=== PATIENT | female | born 1995 | race Caucasian/White ===

== ENCOUNTER 2016-11-16 15:01 | Emergency (ER) | payer OTHER ==
[2016-11-16 15:07] VITALS: BP 113/50; PULSE 79; TEMP 99; BMI 22.6
[2016-11-16] MEDS ORDERED: RABIES IMMUNE GLOBULIN 300 UNITS/2 ML VIAL IM ONE (15:36)
[2016-11-16] MEDS ORDERED: RABIES VACCINE (PCEC)/PF 2.5 UNIT/VIAL IM ONE (15:36)
[2016-11-16] MEDS ORDERED: DIPHTH,PERTUSS(ACELL),TET 0.5 ML DISP.SYRIN IM ONE (15:37)
--- NOTE | 2016-11-16 16:21 | PDOC ---
History of Present Illness - General Chief Complaint: Bite Stated Complaint: BITTEN BY CAT Time Seen by Provider: 11/16/16 15:29 History Source: Patient Exam Limitations: No Limitations - History of Present Illness Initial Comments: 11/16/16 15:54 CHIEF COMPLAINT: Bite to right posterior leg from stray cat HISTORY OF PRESENT ILLNESS: Patient is a 21-year-old female, no significant medical history currently on no medication reports that she came with her dog, was attacked from behind by a stray cat to right posterior leg unable to find the cat noticeable scratches and questionable bite to right posterior leg. Last tetanus is unknown. Timing/Duration: reports: this afternoon Severity: Yes: moderate Location: reports: extremities (right posterior leg) Respiratory Risk Factors: reports: no cause identified Associated Symptoms: reports: denies symptoms Past History - Past Medical History Allergies/Adverse Reactions: Allergies Allergy/AdvReac Type Severity Reaction Status Date / Time No Known Allergies Allergy Verified 11/16/16 15:07 Home Medications: Ambulatory Orders Amox-Tr/K Cl [Augmentin - 875Mg Tablet] 1 tab PO BID #14 tablet 11/16/16 Other medical history: NONE - Psycho/Social/Smoking Cessation Hx Suicidal Ideation: No Smoking History: Never smoked Hx Alcohol Use: Yes (SOCIAL) Drug/Substance Use Hx: No Review of Systems - Review of Systems Constitutional: No: Symptoms Reported HEENTM: No: Symptoms Reported Respiratory: No: Symptoms reported Cardiac (ROS): No: Symptoms Reported ABD/GI: No: Symptoms Reported : No: Symptoms Reported Musculoskeletal: No: Symptoms Reported Integumentary: Yes: Other (abrasion and scratches to the right posterior leg. No surrounding redness, swelling or signs of infection. ) Neurological: No: Symptoms reported, Paresthesia, Tingling, Tremors Hematologic/Lymphatic: No: Symptoms Reported All Other Systems: Reviewed and Negative *Physical Exam - Vital Signs Last Vital Signs Temp Pulse Resp BP Pulse Ox 99.0 F 79 18 113/50 99 11/16/16 15:02 11/16/16 15:02 11/16/16 15:02 11/16/16 15:02 11/16/16 15:02 - Physical Exam General Appearance: Yes: Appropriately Dressed. No: Apparent Distress Neck: negative: Tender lateral, Tender midline Respiratory/Chest: positive: Lungs Clear, Normal Breath Sounds Lymphatic: negative: Adenopathy Musculoskeletal: positive: Normal Inspection Extremity: positive: Normal Capillary Refill. negative: Normal Range of Motion , Swelling, Erythema, Inflammation Integumentary: positive: Other (Abrasion and ? superficial puncture to right posterior leg. ). negative: Erythema, Swelling, Ecchymosis, Bruising Neurologic: positive: Alert, Normal Mood/Affect, Normal Response, Motor Strength 5/ ED Treatment Course - Medications Given in the ED: ED Medications Discontinued Medications Generic Name Dose Route Start Last Admin Trade Name Freq PRN Reason Stop Dose Admin Diphtheria/Tetanus/Acell Pertussis 0.5 ml 11/16/16 15:37 11/16/16 15:50 Boostrix - IM 11/16/16 15:38 0.5 ml .ONCE ONE Administration Rabies Vaccine 2.5 unit 11/16/16 15:36 11/16/16 15:51 Rabavert Rabies Vaccine IM 11/16/16 15:37 2.5 unit .ONCE ONE Administration Medical Decision Making - Medical Decision Making 11/16/16 16:53 A/P: Patient was scratched and bitten by a feral cat, vaccination and Imovax started. Infiltrated around wound. Schedule given to patient to return. Tetanus given. 11/16/16 22:53 *DC/Admit/Observation/Transfer Diagnosis at time of Disposition: Cat bite Qualifiers: Encounter type: initial encounter Qualified Code(s): W55.01XA - Bitten by cat, initial encounter - Discharge Dispostion Disposition: HOME Condition at time of disposition: Good Admit: No - Prescriptions Prescriptions: Amox-Tr/K Cl [Augmentin - 875Mg Tablet] 1 tab PO BID #14 tablet - Referrals Referrals: Luis Langley MD [Primary Care Provider] - - Patient Instructions Printed Discharge Instructions: DI for Animal Bites Additional Instructions: Please keep area clean and dry Please return on proper schedule. Antibiotics as ordered until completed if any increased redness swelling or signs of infection please return to ER - Post Discharge Activity Work/School Note: Back to Work, Rabies Vaccination F/U Tabitha.
== END 2016-11-16 17:02 | disposition home or self-care (01) ==
LOC: JERFT 15:01
PROC: 3E0234Z Introduction of Serum, Toxoid and Vaccine into Muscle, Percutaneous Approach (ICD-10-PCS; principal; 2016-11-16)
DX: S81.851A Open bite, right lower leg, initial encounter (principal); W55.01XA Bitten by cat, initial encounter; Y93.89 Activity, other specified; Y92.9 Unspecified place or not applicable; Z20.3 Contact with and (suspected) exposure to rabies
CPT/HCPCS: 90375; 90675; 90715; 99281-25

== ENCOUNTER 2016-11-20 00:09 | Emergency (ER) | payer OTHER ==
[2016-11-20] MEDS ORDERED: RABIES VACCINE (PCEC)/PF 2.5 UNIT/VIAL IM ONE (00:17)
[2016-11-20 00:18] VITALS: BP 115/62; PULSE 82; TEMP 97.9; BMI 22.6
--- NOTE | 2016-11-20 00:34 | PDOC ---
History of Present Illness - General Chief Complaint: Revisit,Rabies Injection Stated Complaint: REVISIT-RABIES VACCINE Time Seen by Provider: 11/20/16 00:17 History Source: Patient Exam Limitations: No Limitations - History of Present Illness Initial Comments: 11/20/16 00:30 The 21-year-old female presents to the emergency department for a rabies vaccination. Patient states she was bit by a stray cat 3 days ago. He denies fever, chills, ext numbness or tingling sensation. Patient says she feels fine and has no complaints. Past History - Past Medical History Allergies/Adverse Reactions: Allergies Allergy/AdvReac Type Severity Reaction Status Date / Time No Known Allergies Allergy Verified 11/20/16 00:14 Home Medications: Ambulatory Orders NK [No Known Home Medication] 11/20/16 Other medical history: denies - Psycho/Social/Smoking Cessation Hx Suicidal Ideation: No Smoking History: Never smoked Hx Alcohol Use: Yes (SOCIAL) Drug/Substance Use Hx: No Review of Systems - Review of Systems Able to Perform ROS?: Yes Comments:: 11/20/16 00:31 CONSTITUTIONAL: Absent: fever, chills, diaphoresis, generalized weakness, malaise, loss of appetite SKIN: healing abrasion to distal lat right lower leg Absent: rash, itching, pallor HEMATOLOGIC/IMMUNOLOGIC: Absent: easy bleeding, easy bruising, lymphadenopathy, frequent infections ENDOCRINE: Absent: unexplained weight gain, unexplained weight loss, heat intolerance, cold intolerance Is the patient limited Norwegian proficient: No *Physical Exam - Vital Signs Last Vital Signs Temp Pulse Resp BP Pulse Ox 97.9 F 82 18 115/62 99 11/20/16 00:10 11/20/16 00:10 11/20/16 00:10 11/20/16 00:10 11/20/16 00:10 - Physical Exam Comments: 11/20/16 00:32 GENERAL: Well developed, well nourished. Awake and alert. No acute distress. MUSCULOSKELETAL Normal range of motion at all joints. No bony deformities or tenderness. No CVA tenderness. EXTREMITIES: No cyanosis. No clubbing. No edema. No calf tenderness. SKIN: Warm and dry. Normal capillary refill. No rashes. No jaundice. Right lat lower right leg; superficial abrasions [id number] *DC/Admit/Observation/Transfer Diagnosis at time of Disposition: Need for rabies vaccination - Discharge Dispostion Disposition: HOME Condition at time of disposition: Stable Admit: No - Referrals Referrals: Luis Langley MD [Primary Care Provider] - - Patient Instructions Printed Discharge Instructions: DI for Rabies Vaccine Additional Instructions: Your next Rabies (3rd) vaccination is on November 23. Your last rabies vaccination is on Nov 30. Return to the Er as needed
== END 2016-11-20 01:00 | disposition home or self-care (01) ==
LOC: JER 00:09
PROC: 3E0234Z Introduction of Serum, Toxoid and Vaccine into Muscle, Percutaneous Approach (ICD-10-PCS; principal; 2016-11-20)
DX: Z20.3 Contact with and (suspected) exposure to rabies (principal)
CPT/HCPCS: 90675; 99281-25

== ENCOUNTER 2019-07-11 00:20 | Emergency (ER) | payer OTHER ==
[2019-07-11] MEDS ORDERED: SODIUM CHLORIDE 1,000 ML IV STA ×2 (00:30→01:42)
[2019-07-11] MEDS ORDERED: ACETAMINOPHEN 1000 MG/100 ML VIAL (NON FORMULARY) IVPB ONE (00:30)
[2019-07-11] MEDS ORDERED: ACETAMINOPHEN INJECTION 100 ML IVPB ONE (00:45)
--- NOTE | 2019-07-11 00:45 | PDOC ---
History of Present Illness - General Chief Complaint: Pain Stated Complaint: ABDOMINAL PAIN Time Seen by Provider: 07/11/19 00:29 History Source: Patient Exam Limitations: No Limitations - History of Present Illness Initial Comments: 07/11/19 01:02 23y F with PMH of ovarian cysts s/p ?cystectomy 4y ago presenting to ED via EMS for abdominal pain. Pt is hyperventilating and states that she has had the pain on and off for the past week or so but got worse today and she started to feel numbness in her hands and fingers and stiffening up. She states the abdominal pain is in the LUQ feels sharp radiating to her chest. She denies n/v/d, back pain, urinary symptoms, fevers, chills, headache. PMD: PMH: none PSH: see hpi Meds: none Allergies: nkda 07/11/19 01:44 Past History - Past Medical History Allergies/Adverse Reactions: Allergies Allergy/AdvReac Type Severity Reaction Status Date / Time No Known Allergies Allergy Verified 07/11/19 01:42 Home Medications: Ambulatory Orders NK [No Known Home Medication] 11/20/16 - Psycho Social/Smoking Cessation Hx Smoking History: Never smoked Hx Alcohol Use: Yes (SOCIAL) Drug/Substance Use Hx: No Review of Systems - Review of Systems Constitutional: No: Chills, Fever HEENTM: No: Symptoms Reported Respiratory: Yes: Shortness of Breath. No: Cough Cardiac (ROS): Yes: Chest Pain ABD/GI: Yes: See HPI : No: Symptoms Reported Musculoskeletal: Yes: See HPI Integumentary: No: Symptoms Reported Neurological: Yes: See HPI *Physical Exam - Physical Exam General Appearance: Yes: Nourished, Appropriately Dressed, Severe Distress HEENT: positive: EOMI, STEPHANIE Neck: positive: Trachea midline, Supple Respiratory/Chest: positive: Lungs Clear, Normal Breath Sounds, Rapid RR (hyperventilation). negative: Chest Tender, Accessory Muscle Use, Crackles, Rhonchi, Stridor, Wheezing Cardiovascular: positive: Regular Rhythm, S1, S2, Tachycardia. negative: Edema, JVD, Murmur Vascular Pulses: Dorsalis-Pedis (R): 2+, Doralis-Pedis (L): 2+ Gastrointestinal/Abdominal: positive: Normal Bowel Sounds, Soft. negative: Tender, Guarding, Rebound, Tenderness Musculoskeletal: positive: Other (upper extremities flexed and resisting exten kirsten. told pt to relax). 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 pt is hyperventilating. no tenderness. ddx includes pe/gerd/gastritis, appendicitis, cholelithaisis, cholecystitis, , sbo + panic attack. will obtain labs, bhcg, lipase, trop ns, ofirmev, pepcid, maalox. given nrb without tubing for hyperventilation (likely cause of numbness/paresthesias). will reassess. 07/11/19 01:06 pt feeling better. no leukocytosis. hypkalemia (will replete) trop negative. all other electrolytes wnl. preg negative. pt states that she travelled to [place] and returned 2d ago. She was seen at urgent care for this chest pain she was having. will order d-dimer, cxr, ekg lact 3, likely 2/2/ hyerperentilalation. will hydrate more and rpt. 07/11/19 01:51 ekg: nsr at 70bpm. normal intervals. no S1Q3T3. low voltage qrs. no signs of acute sichemia. good R wave progression. CXR per my read: no infiltrates or consolidations, no trachea deviation, no ptx. 07/11/19 02:29 pt feeling better. eating chips. negative trop, ddimer 200s. pt is not tachypneic, symptoms improved. will rpt lactic acid and pending UA 07/11/19 03:06 UA negative for infection. 07/11/19 03:07 07/11/19 03:30 pt is better, vitals stable. not tachycardic, not dyspneic. normotensive. will dc home. Discharge - Discharge Information Problems reviewed: Yes Clinical Impression/Diagnosis: Hyperventilation Abdominal pain Qualifiers: Abdominal location: left upper quadrant Qualified Code(s): R10.12 - Left upper quadrant pain Chest pain Qualifiers: Chest pain type: unspecified Qualified Code(s): R07.9 - Chest pain, unspecified Condition: Improved Disposition: HOME - Admission No - Follow up/Referral Referrals: Helen Landis [Primary Care Provider] - - Patient Discharge Instructions Patient Printed Discharge Instructions: DI for Abdominal Pain-Adult, DI for Atypical Chest Pain, DI for Hyperventilation Additional Instructions: You were seen in the ER for chest pain, abdominal pain and tingling in the hands. The pain in your hands was due to hyperventilation. If you ever feel this way, breathe into a bag. Your blood work was normal. I do not know the exact cause of your pain but it could be due to a panic attack. I recommend following up with your doctor. Come back to the ER if you have worsening chest pain, are unable to breathe or if any new or concerning symptom develops. Thank you - Post Discharge Activity
[2019-07-11] MEDS ORDERED: MAG HYDROX/AL HYDROX/SIMETH -MYLANTA- ORAL SUSPENSION PO ONE (00:46)
[2019-07-11] MEDS ORDERED: FAMOTIDINE 20 MG/50 ML IVPB 20 MG/50 ML MG IVPB ONE ×2 (00:46→00:54)
[2019-07-11] MEDS ORDERED: MAG HYDROX/AL HYDROX/SIMETH 30 ML UNIT-DOSE CUP ONE (00:54)
--- NOTE | 2019-07-11 01:00 | PDOC ---
Documentation entered by Alycia Ware SCRIBE, acting as scribe for Chica Romero DO. Chica Romero DO: This documentation has been prepared by the Jeanie hernandez Brenda, SCRIBE, under my direction and personally reviewed by me in its entirety. I confirm that the documentation accurately reflects all work, treatment, procedures, and medical decision making performed by me. Attending Attestation - Resident Resident Name: MillieKecia - ED Attending Attestation I have performed the following: I have examined & evaluated the patient, The case was reviewed & discussed with the resident, I agree w/resident's findings & plan, Exceptions are as noted - HPI HPI: 07/11/19 00:46 The patient is a 23 year old female with no significant PMH who presents to the ED BIBA for evaluation of 2 weeks of intermittent sharp abdominal pain radiating to her chest. Patient reports that the pain became progressively worse tonight, prompting her to call the ambulance. Patient also endorses nausea starting earlier today. The patient denies shortness of breath, headache and dizziness. Denies fever, chills, vomiting, diarrhea and constipation. Denies dysuria, frequency, urgency and hematuria. Allergies: NKA Social Hx: Social alcohol use - Physicial Exam PE: 07/11/19 00:47 GENERAL: Panicking. Hyperventilating. Awake, alert, and fully oriented, in no acute distress HEAD: No signs of trauma EYES: PERRLA, EOMI, sclera anicteric, conjunctiva clear ENT: Auricles normal inspection, hearing grossly normal, nares patent, oropharynx clear without exudates. Moist mucosa NECK: Normal ROM, supple, no lymphadenopathy, JVD, or masses LUNGS: (+) Tachypneic. Breath sounds equal, clear to auscultation bilaterally. No wheezes, and no crackles HEART: (+) tachycardic. Regular rhythm, normal S1 and S2, no murmurs, rubs or gallops ABDOMEN: (+) mild epigastric tenderness. Soft, nontender, normoactive bowel sounds. No guarding, no rebound. No masses No CVA tenderness. EXTREMITIES: Normal range of motion, no edema. No clubbing or cyanosis. No cords, erythema, or tenderness NEUROLOGICAL: Cranial nerves II through XII grossly intact. Normal speech, normal gait SKIN: Warm, Dry, normal turgor, no rashes or lesions noted. - Medical Decision Making 07/11/19 00:57 I, Dr. Chica Romero, DO, attest that this document has been prepared under my direction and personally reviewed by me in its entirety. I further attest, that it accurately reflects all work, treatment, procedures and medical decision-making performed by me. a/p: 23yo female with abd pain that radiates through her chest -pain has been on and off for 2 weeks, but worse tonight -no assoc diarrhea, no vomiting -states pain is sharp -pt c/o nausea earlier today -will send labs -will medicate -pt hyperventilating- suspect cause of tingling to arms and legs- placed on a nrb -will monitor and reassess 07/11/19 01:33 pt feeling better, but still with an ache in the upper abd, sob no longer tachypnic recently returned from [place]- no cough, no fevers will add dimer 07/11/19 01:44 lactate 3 from resp muscle use no longer tachypnic will repeat dimer pending trop neg cxr penidng Heart Score/ECG Review - ECG Intrepretation Comment:: 07/11/19 01:50 sinus at 70, nl axis, nl interval, low voltage, no acute st/t wave findings
[2019-07-11 01:01] LABS: BASO % 0.5 % (0-2.0); EOS % 2.2 % (0-4.5); HEMATOCRIT 41.1 % (32.4-45.2); HEMOGLOBIN 14.2 GM/dL (10.7-15.3); LYMPH % 31.8 % (8-40); MCH 29.4 pg (25.7-33.7); MCHC 34.5 g/dl (32.0-36.0); MEAN CELL VOLUME 85.2 fl (80-96); NEUT % 59.5 % (42.8-82.8); PLATELET COUNT 168 K/MM3 (134-434); RBC 4.82 M/mm3 (3.60-5.2); RDW 13.6 % (11.6-15.6); WHITE BLOOD COUNT 6.3 K/mm3 (4.0-10.0)
[2019-07-11 01:31] LABS: ALBUMIN 3.8 g/dl (3.4-5.0); ALK PHOS 58 U/L (45-117); ANION GAP 12 MMOL/L (8-16); BILIRUBIN,TOTAL 0.3 mg/dL (0.2-1); BLOOD UREA NITROGEN 9.6 mg/dL (7-18); CHLORIDE 106 mmol/L (98-107); CO2 21 mmol/L (21-32); CREATININE 0.8 mg/dL (0.55-1.3); GLUCOSE,RANDOM 83 mg/dL (74-106); LIPASE 89 U/L (73-393); POTASSIUM 3.2 mmol/L (3.5-5.1); SGOT/AST 23 U/L (15-37); SGPT/ALT 19 U/L (13-61); SODIUM 139 mmol/L (136-145)
[2019-07-11] MEDS ORDERED: ONDANSETRON 4 MG/2 ML VIAL IVPB ONE (01:34)
[2019-07-11] MEDS ORDERED: POTASSIUM CHLORIDE ORAL LIQUID 20 MEQ/15 ML PO ONE (01:34)
[2019-07-11 02:22] VITALS: TEMP 98; BMI 26.4
[2019-07-11 02:51] LABS: PH,URINE 6.5 (5.0-8.0); URINE APPEARANCE CLEAR; URINE BILIRUBIN NEGATIVE (NEGATIVE); URINE COLOR YELLOW; URINE GLUCOSE (UA) NEGATIVE (NEGATIVE); URINE KETONE NEGATIVE (NEGATIVE); URINE LEUK ESTERASE NEGATIVE (NEGATIVE); URINE NITRITE NEGATIVE (NEGATIVE); URINE PROTEIN NEGATIVE (NEGATIVE)
[2019-07-11 03:11] VITALS: BP 111/67; PULSE 72
--- NOTE | 2019-07-11 15:06 | EKG ---
Test Reason : Blood Pressure : / mmHG Vent. Rate : 070 BPM Atrial Rate : 070 BPM P-R Int : 158 ms QRS Dur : 096 ms QT Int : 420 ms P-R-T Axes : 074 029 044 degrees QTc Int : 453 ms NORMAL SINUS RHYTHM LOW VOLTAGE QRS BORDERLINE ECG NO PREVIOUS ECGS AVAILABLE Confirmed by YING CORREA MD ([id number]) on 07/11/2019 3:05:57 PM Referred By: Confirmed By:YING CORREA MD
== END 2019-07-11 03:26 | disposition home or self-care (01) ==
LOC: JER 00:20
PROC: 3E033GC Introduction of Other Therapeutic Substance into Peripheral Vein, Percutaneous Approach (ICD-10-PCS; principal; 2019-07-11)
PROC: 3E033NZ Introduction of Analgesics, Hypnotics, Sedatives into Peripheral Vein, Percutaneous Approach (ICD-10-PCS; 2019-07-11)
PROC: 3E033GC Introduction of Other Therapeutic Substance into Peripheral Vein, Percutaneous Approach (ICD-10-PCS; 2019-07-11)
DX: R06.4 Hyperventilation (principal); R10.12 Left upper quadrant pain; R07.9 Chest pain, unspecified
CPT/HCPCS: 36415; 71045-TC-FY; 80053; 81003; 83605; 83690; 84484; 84702; 85025; 85379; 87086; 93005; 93010; 99285-25; J0131; J7030

== ENCOUNTER 2019-11-21 13:33 | Emergency (ER) | payer OTHER ==
[2019-11-21] MEDS ORDERED: ACETAMINOPHEN 500 MG TABLET (FP) PO ONE (13:54)
[2019-11-21 13:56] VITALS: BMI 21.7
--- NOTE | 2019-11-21 13:56 | PDOC ---
Rapid Medical Evaluation Chief Complaint: Injury Time Seen by Provider: 11/21/19 13:52 Medical Evaluation: Allergies Allergy/AdvReac Type Severity Reaction Status Date / Time No Known Allergies Allergy Verified 11/21/19 13:52 11/21/19 13:52 24 year old female with no pmhx of migraines complaining of head trauma on Monday. No LOC complaining of dizziness without nausea or vomiting. PE: WNL Neuro: no deficits Plan: Tylenol Imaging Deferred to provider Pt to precede to ED for further treatment and care 11/21/19 13:55
[2019-11-21] MEDS ORDERED: ACETAMINOPHEN 1000 MG/100 ML VIAL (NON FORMULARY) IVPB ONE (14:54)
[2019-11-21] MEDS ORDERED: METOCLOPRAMIDE HCL INJECTION 10 MG/2 ML VIAL IVPB ONE (14:54)
[2019-11-21] MEDS ORDERED: SODIUM CHLORIDE 1,000 ML IV STA (14:54)
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
[2019-11-21] MEDS ORDERED: ACETAMINOPHEN INJECTION 100 ML IVPB ONE (15:12)
[2019-11-21] MEDS ORDERED: METOCLOPRAMIDE HCL INJECTION 10 MG/2 ML VIAL ONE (15:12)
[2019-11-21 15:38] LABS: BASO % 0.2 % (0-2.0); EOS % 1.1 % (0-4.5); HEMOGLOBIN 13.8 GM/dL (10.7-15.3); LYMPH % 28.4 % (8-40); MCHC 33.7 g/dl (32.0-36.0); MEAN CELL VOLUME 89.3 fl (80-96); MEAN PLT VOLUME 9.6 fl (7.5-11.1); MONO % 5.9 % (3.8-10.2); NEUT % 64.4 % (42.8-82.8); PLATELET COUNT 175 K/MM3 (134-434); RBC 4.59 M/mm3 (3.60-5.2); RDW 13.1 % (11.6-15.6)
[2019-11-21 16:06] LABS: ALBUMIN 3.7 g/dl (3.4-5.0); BILIRUBIN,TOTAL 0.5 mg/dL (0.2-1); BLOOD UREA NITROGEN 11.2 mg/dL (7-18); CALCIUM 9.4 mg/dL (8.5-10.1); CREATININE 0.8 mg/dL (0.55-1.3); TOT PROT 7.8 g/dl (6.4-8.2)
[2019-11-21 18:52] VITALS: BP 95/65; PULSE 82; TEMP 98
== END 2019-11-21 19:04 | disposition home or self-care (01) ==
LOC: JER 13:33
PROC: 3E033NZ Introduction of Analgesics, Hypnotics, Sedatives into Peripheral Vein, Percutaneous Approach (ICD-10-PCS; principal; 2019-11-21)
PROC: 3E033GC Introduction of Other Therapeutic Substance into Peripheral Vein, Percutaneous Approach (ICD-10-PCS; 2019-11-21)
PROC: 3E0337Z Introduction of Electrolytic and Water Balance Substance into Peripheral Vein, Percutaneous Approach (ICD-10-PCS; 2019-11-21)
DX: R51 Headache (principal)
CPT/HCPCS: 36415; 70450-TC; 80053; 85025; 96361; 96374; 96375; 99285-25; J0131